=== PATIENT | female | born 1980 | race Caucasian/White ===

== ENCOUNTER 2016-12-09 06:32 | Day surgery (SDC) | payer OTHER ==
[~2016-12-09 06:32] MED LIST: Lactated Ringers 1,000 ML IV SCH; Lidocaine 1% 50 ML MDV ONE
[2016-12-09] MEDS ORDERED: Ondansetron 4 MG/2 ML SDV ONE (07:24)
[2016-12-09] MEDS ORDERED: Lidocaine 2% 5 ML SDV ONE (07:24)
[2016-12-09] MEDS ORDERED: Propofol 200 MG/20 ML SDV ONE (07:24)
[2016-12-09] MEDS ORDERED: fentaNYL 250 MCG/5 ML SDV ONE (07:25)
[2016-12-09] MEDS ORDERED: Midazolam 1 MG/ML 2 ML SDV ONE (07:25)
[2016-12-09] MEDS ORDERED: ceFAZolin 1 GM Vial ONE ×2 (07:29→09:00)
--- NOTE | 2016-12-09 07:37 | PCM.PREANE ---
Preanesthetic Assessment - Procedure Proposed Procedure: Knee arthroscopy - Anesthesia/Transfusion/Family Hx Anesthesia History: Prior Anesthesia Without Reaction Other Type of Anesthesia Reaction Comment: "my blood pressure drops when coming out of anesthesia" Family History of Anesthesia Reaction: No Transfusion History: No Prior Transfusion(s) - Review of Systems General: No Symptoms Pulmonary: No Symptoms Cardiovascular: No Symptoms, Other (hx cardiomyopathy in distant past) Gastrointestinal: No Symptoms Neurological: Headache (migraines in past), Other (pain in bilateral knees) Other: Reports: None, Anxiety - Physical Assessment O2 Sat by Pulse Oximetry: 98 Respiratory Rate: 16 Vital Signs: Last Vital Signs Temp 98.6 F 12/09/16 07:00 Pulse 66 12/09/16 07:00 Resp 16 12/09/16 07:00 BP 116/70 12/09/16 07:00 Pulse Ox 98 12/09/16 07:00 Height: 5 ft 8 in Weight: 192 lb ASA Class: 2 Mental Status: Alert & Oriented x3 Airway Class: Mallampati = 1 Dentition: Reports: Normal Dentition Thyro-Mental Finger Breadths: 3 Mouth Opening Finger Breadths: 3 ROM/Head Extension: Full Lungs: Clear to Auscultation, Normal Respiratory Effort Cardiovascular: Regular Rate, Regular Rhythm, No Murmurs - Allergies Allergies/Adverse Reactions: Allergies Allergy/AdvReac Type Severity Reaction Status Date / Time Dairy Products Allergy Headache Verified 09/02/15 16:18 gluten Allergy Pain Verified 09/02/15 16:18 Sulfa (Sulfonamide Allergy Hives Verified 06/18/14 12:06 Antibiotics) coconut Allergy Hives Uncoded 09/02/15 16:18 sulfa Allergy Hives Uncoded 06/18/14 12:06 - Blood Blood Available: No Product(s) Available: None - Anesthesia Plan Pre-Op Medication Ordered: None - Acknowledgements Anesthesia Type Planned: General Anesthesia (LMA) Pt an Appropriate Candidate for the Planned Anesthesia: Yes Alternatives and Risks of Anesthesia Discussed w Pt/Guardian: Yes Pt/Guardian Understands and Agrees with Anesthesia Plan: Yes Additional Comments: at bedside with interview and exam. 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 Neurological History: Reports: Migraines Other Neuro History: states has not had a migrane since insertion if pressure point piercings Psychiatric History: Reports: Anxiety Endocrine/Metabolic History: Reports: None Hematologic History: Reports: None Oncologic (Cancer) History: Reports: Cervix Dermatologic History: Reports: None - Past Surgical History Head Surgeries/Procedures: Reports: None HEENT Surgical History: Reports: None Cardiovascular Surgical History: Reports: None Respiratory Surgical History: Reports: None GI Surgical History: Reports: None Female Surgical History: Reports: Hysterectomy, LEEP, Salpingo-Oophorectomy Neurological Surgical History: Reports: None Musculoskeletal Surgical History: Reports: Other (See Below) Other Musculoskeletal Surgeries/Procedures:: surgery on right foot for " Cobblers bump" Oncologic Surgical History: Reports: None - SUBSTANCE USE Smoking Status *Q: Never Smoker Second Hand Smoke Exposure: No Days Per Week of Alcohol Use: 0 Recreational Drug Use History: No - HOME MEDS Home Medications: Home Meds SUMAtriptan [Imitrex] 100 mg PO ASDIRECTED PRN 06/18/14 [History] Ibuprofen 800 mg PO ASDIRECTED PRN 11/19/16 [History] - CURRENT (IN HOUSE) MEDS Current Meds: Current Medications Hydrocodone Bitart/Acetaminophen ([place] 325-5 Mg) 1 - 2 tab PO Q4H PRN PRN Reason: Pain Lactated Ringer's (Ringers, Lactated) 1,000 mls @ 100 mls/hr IV ASDIRECTED [facility] Cefazolin Sodium/Dextrose 2 gm (/ Premix) 50 mls @ 100 mls/hr IV ONCALL TYREE Discontinued Medications Cefazolin Sodium (Ancef) Confirm Administered Dose 1 gm .ROUTE .STK-MED ONE Stop: 12/09/16 07:30 Fentanyl (Sublimaze) Confirm Administered Dose 250 mcg .ROUTE .STK-MED ONE Stop: 12/09/16 07:26 Cefazolin Sodium/Dextrose (Ancef) Confirm Administered Dose 50 mls @ as directed .ROUTE .STK-MED ONE Stop: 12/09/16 07:30 Lidocaine (Xylocaine-Mpf 2%) Confirm Administered Dose 5 ml .ROUTE .STK-MED ONE Stop: 12/09/16 07:25 Lidocaine HCl (Xylocaine 1%) Confirm Administered Dose 50 ml .ROUTE .STK-MED ONE Stop: 12/08/16 15:14 Midazolam HCl (Versed 1 Mg/Ml) Confirm Administered Dose 2 mg .ROUTE .STK-MED ONE Stop: 12/09/16 07:26 Ondansetron HCl (Zofran) Confirm Administered Dose 4 mg .ROUTE .STK-MED ONE Stop: 12/09/16 07:25 Propofol (Diprivan 20 Ml) Confirm Administered Dose 200 mg .ROUTE .STK-MED ONE Stop: 12/09/16 07:25
[2016-12-09] MEDS ORDERED: Scopolamine 1.5 MG Transdermal Patch ONE (07:40)
[2016-12-09] MEDS ORDERED: ceFAZolin 2 GM in Premix Bag 1 BAG IV SCH (08:00)
[2016-12-09] MEDS ORDERED: diphenhydrAMINE 50 MG/ML SDV ONE (08:09)
[2016-12-09] MEDS ORDERED: Dexamethasone 4 MG/ML 5 ML MDV ONE (08:09)
[2016-12-09] MEDS ORDERED: Ketorolac 30 MG/ML SDV ONE (08:21)
[2016-12-09] MEDS ORDERED: fentaNYL 100 MCG/2 ML SDV IVPUSH PRN (08:44)
--- NOTE | 2016-12-09 08:46 | PCM.OPNOTE ---
- General Post-Op/Procedure Note Date of Surgery/Procedure: 12/09/16 Operative Procedure(s): L knee arthroscopy with patella chondroplasty Post-Op Diagnosis: L patella chondromalacia Anesthesia Technique: General ET Tube Primary Surgeon: Natalie Dee [employer] Paralegal: Macrina Giron in mLs: 5 Condition: Good Free Text/Narrative:: tt=11 min #[id number]
[2016-12-09] MEDS ORDERED: Phenylephrine/Normal Saline 100 MCG/ML 10 ML Syringe ONE (09:25)
[2016-12-09] MEDS: Acetaminophen/HYDROcodone 325-5 MG Tab PO PRN ×2 (09:37→11:50)
[2016-12-09 11:33] VITALS: BP 107/58
--- NOTE | 2016-12-09 11:45 | OR ---
SURGEON: Natalie Dee MD DATE OF PROCEDURE: 12/09/2016 PREOPERATIVE DIAGNOSIS: Left knee patellar chondromalacia. POSTOPERATIVE DIAGNOSIS: Left knee patellar chondromalacia. PROCEDURE: Left knee arthroscopy with chondroplasty of the patella. INSTANT PRINTER OPERATOR: Macrina Giron PA-C. ANESTHESIA: General. ESTIMATED BLOOD LOSS: 5 mL. TOURNIQUET TIME: 11 minutes. COMPLICATIONS: None. DVT PROPHYLAXIS: None indicated. IMPLANTS USED: None. BRIEF HISTORY: Odette is a 36-year-old female, who has had complaint of progressive bilateral knee pain, left greater than right. She did have an MRI, which did not show significant abnormality. She had significant crepitus noted along the patellofemoral joint. Due to her lack of response to conservative treatment, I did recommend surgical intervention. The risks and goals of the procedure were discussed with the patient and were documented preoperatively. She agreed to proceed. DESCRIPTION OF PROCEDURE: The patient was properly identified and brought to the operating room. She was transferred from the OR cart and placed on the operating table in supine position. General anesthesia was administered. After adequate anesthesia was obtained, a well-padded tourniquet was applied to the left lower extremity. The left lower extremity was then prepped in standard fashion using ChloraPrep solution. It was then sterilely draped. A time-out was performed to ensure correct site and procedure. Preoperative antibiotics were given. The surgical site had been marked preoperatively. An Esmarch was used to exsanguinate the left lower extremity. The tourniquet was inflated to 250 mmHg. A lateral portal arthrotomy was made. Blunt trocar and cannula were introduced into the suprapatellar pouch. Camera, inflow, and outflow were assembled. No significant synovitis was noted. The patellofemoral joint was visualized. I then extended down the lateral and medial gutter. No loose bodies were identified. I then entered the medial compartment. A medial portal arthrotomy was established. A blunt probe was inserted. The meniscus was extensively probed. No tearing was noted. The joint surfaces showed no significant degenerative findings. There was minor softening along the posterior aspect of the medial femoral condyle. I then entered the notch. Both the ACL and PCL were visualized and probed and found to be intact. I then entered the lateral compartment. She did have some grade 2 chondromalacia along the medial portion of the lateral tibial plateau. The lateral femoral condyle showed no degenerative findings. The lateral meniscus was extensively probed and no tearing was noted. I then re-entered the patellofemoral joint. She did have an area of chondromalacia measuring approximately 10 mm x 10 mm over the lateral facet of the patella. This appeared unstable. A shaver was used to perform a chondroplasty. I was able to get the cartilage back to a stable remnant. No subchondral bone was exposed. The knee was taken through a range of motion. The patella appeared to track centrally. The instruments were then removed from the knee. The portal sites were closed with 3-0 nylon. Lidocaine 1% was injected along the portal tracts. Xeroform gauze was placed over the wound and a bulky dressing was applied. The tourniquet was then deflated. She was awakened from her anesthetic and transferred back to the operating room cart. She was brought to recovery room in stable condition. All needle and sponge counts were correct. ABI / CARTER /[id number]
--- NOTE | 2016-12-09 12:32 | PCM.POSTAN ---
POST ANESTHESIA ASSESSMENT - MENTAL STATUS Mental Status: Alert, Oriented - RESPIRATORY Respiratory Status: respiratory rate WNL, Airway Patent, O2 Saturation Stable - CARDIOVASCULAR CV Status: Pulse Rate WNL, Blood Pressure Stable - GASTROINTESTINAL GI Status: No Symptoms, Nauseau (known hx; she seems to only have a mild case, but encouraged to rest and await disappearance of same) - POST OP HYDRATION Hydration Status: Adequate & Stable
== END 2016-12-09 12:10 | disposition home or self-care (01) ==
LOC: MW.SDS 06:32
PROVIDERS: ATTEND Orthopaedic Surgery
DX: M22.42 Chondromalacia patellae, left knee (principal); M19.90 Unspecified osteoarthritis, unspecified site; G43.909 Migraine, unspecified, not intractable, without status migrainosus; Z90.722 Acquired absence of ovaries, bilateral; Z98.890 Other specified postprocedural states; Z88.2 Allergy status to sulfonamides; Z91.011 Allergy to milk products; Z91.018 Allergy to other foods
CPT/HCPCS: 29877; A9270; J0690; J1100; J1200; J1885; J2250; J2405; J3010; J7120; 01400; 88304; J2704

== ENCOUNTER 2018-01-25 23:45 | Emergency (ER) | payer OTHER ==
[2018-01-26] MEDS ORDERED: Sodium Chloride 0.9% 1,000 ML IV ONE (00:04)
[2018-01-26] MEDS ORDERED: Ondansetron 4 MG/2 ML SDV IVPUSH ONE (00:04)
[2018-01-26] MEDS ORDERED: Sodium Chloride 0.9% 2.5 ML Syringe FLUSH PRN (00:04)
[2018-01-26] MEDS ORDERED: Sodium Chloride 0.9% 10 ML Syringe FLUSH PRN (00:04)
[2018-01-26] MEDS ORDERED: Ketorolac 30 MG/ML SDV IVPUSH ONE (00:04)
--- NOTE | 2018-01-26 00:09 | EDM.PDOC ---
ED HPI GENERAL MEDICAL PROBLEM - General Chief Complaint: Abdominal Pain Stated Complaint: PT HAS STOMACH PAINS Time Seen by Provider: 01/25/18 23:54 - History of Present Illness INITIAL COMMENTS - FREE TEXT/NARRATIVE: HISTORY AND PHYSICAL: History of present illness: The patient is a 37-year-old female who presents with right-sided abdominal pain that started about 9 AM and progressed and increased throughout the day. The patient has no GI or history and her only abdominal surgical history is of a vaginal hysterectomy retaining her ovaries and she presents with complaints of a dull deep abdominal pain to the right of the umbilicus started about 9 AM. She said it almost felt like a muscle pull or muscle ache. It did not cause any other symptoms and as the day progressed it seemed to get worse but she did not take any ojrt-hef-pppkkax meds for it. By 2 or 3:00 this afternoon it was more intense and it was radiating to her upper abdomen on the right as well as to her side. She did not have much of an appetite throughout the day and has had nausea but no vomiting. She has not had any diarrhea. The patient states that she usually has 2 bowel movements a day which is her normal and she has not had any today. The patient tells me she is gluten-free as well as lactose intolerance and initially the pain felt similar to that but now it has progressed and it is very different than her usual type of pain if she eats gluten or drinks lactose. The patient says that she monitors her diet throughout the day and she has not had much of an appetite and has had to force herself to eat and push fluids. She has not had any flank pain or urinary complaints no epigastric pain no left-sided abdominal pain and no fevers chills chest pain or shortness of breath. She has not had any recent illnesses. Review of systems: As per history of present illness and below otherwise all systems reviewed and negative. Past medical history: As per history of present illness and as reviewed below otherwise noncontributory. Surgical history: As per history of present illness and as reviewed below otherwise noncontributory. Social history: No reported history of drug or alcohol abuse. Family history: As per history of present illness and as reviewed below otherwise noncontributory. Physical exam: General: Well-developed well-nourished female who looks uncomfortable and is somewhat tearful on my evaluation but vital signs were noted by me. She ambulated into the ED without assistance HEENT: Atraumatic, normocephalic, pupils reactive, negative for conjunctival pallor or scleral icterus, mucous membranes moist, throat clear, neck supple, nontender, trachea midline. Lungs: Clear to auscultation, breath sounds equal bilaterally, chest nontender. Heart: S1S2, regular rate and rhythm no overt murmurs Abdomen: Soft, nondistended, with normoactive bowel sounds. There is discrete tenderness on palpation just to the right of the umbilicus and extending up to the right upper quadrant with some voluntary guarding but no involuntary guarding or rebound.. Negative for masses or hepatosplenomegaly. Negative for costovertebral tenderness. Pelvis: Stable nontender. Genitourinary: Deferred. Rectal: Deferred. Extremities: Atraumatic, negative for cords or calf pain. Neurovascular unremarkable. Neuro: Awake, alert, oriented. Cranial nerves II through XII unremarkable. Cerebellum unremarkable. Motor and sensory unremarkable throughout. Exam nonfocal. Diagnostics: CBC CMP amylase lipase UA CT scan of the abdomen and pelvis Therapeutics: IV fluids Zofran Toradol Bentyl She is aware of all testing results and care plan for home including clear liquid diet Bentyl as needed and follow up with clinic provider for reevaluation and further testing is indicated. Patient is feeling better here in the ED Impression: Right-sided abdominal pain Definitive disposition and diagnosis as appropriate pending reevaluation and review of above. Right Abdomen Pain Score (Numeric/FACES): 7 - Related Data Allergies Allergy/AdvReac Type Severity Reaction Status Date / Time Dairy Products Allergy Headache Verified 09/02/15 16:18 gluten Allergy Pain Verified 09/02/15 16:18 Sulfa (Sulfonamide Allergy Hives Verified 06/18/14 12:06 Antibiotics) coconut Allergy Hives Uncoded 09/02/15 16:18 sulfa Allergy Hives Uncoded 06/18/14 12:06 Home Meds: Home Meds SUMAtriptan [Imitrex] 100 mg PO ASDIRECTED PRN 06/18/14 [History] Ibuprofen 800 mg PO ASDIRECTED PRN 11/19/16 [History] Acetaminophen/HYDROcodone [Chromo 325-5 MG] 1 - 2 tab PO Q4H PRN #80 tablet 12/09 [Rx] Past Medical History HEENT History: Reports: Impaired Vision Other HEENT History: wears glasses for reading and driving Cardiovascular History: Reports: Cardiomyopathy Other Cardiovascular History: Bradycardia Respiratory History: Reports: None Gastrointestinal History: Reports: None Genitourinary History: Reports: None 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: Musculoskeletal History: Reports: Arthritis 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 Neurological History: Reports: Migraines Other Neuro History: states has not had a migrane since insertion if pressure point piercings Psychiatric History: Reports: Anxiety Endocrine/Metabolic History: Reports: None Hematologic History: Reports: None Oncologic (Cancer) History: Reports: Cervix Dermatologic History: Reports: None - Past Surgical History Head Surgeries/Procedures: Reports: None HEENT Surgical History: Reports: None Cardiovascular Surgical History: Reports: None Respiratory Surgical History: Reports: None GI Surgical History: Reports: None Female Surgical History: Reports: Hysterectomy, LEEP, Salpingo-Oophorectomy Neurological Surgical History: Reports: None Musculoskeletal Surgical History: Reports: Other (See Below) Other Musculoskeletal Surgeries/Procedures:: surgery on right foot for " Cobblers bump" Oncologic Surgical History: Reports: None Social & Family History - Family History Family Medical History: Noncontributory - Tobacco Use Smoking Status *Q: Never Smoker ED ROS GENERAL - Review of Systems Review Of Systems: ROS reveals no pertinent complaints other than HPI. ED EXAM, GENERAL - Physical Exam Exam: See Below (See dictation) Course - Vital Signs Last Recorded V/S: Last Vital Signs Temp 36.4 C 01/25/18 23:52 Pulse 63 01/25/18 23:52 Resp 18 01/25/18 23:52 BP 129/75 01/25/18 23:52 Pulse Ox 96 01/25/18 23:52 - Orders/Labs/Meds Orders: Active Orders 24 hr Category Date Time Status Abdomen Pelvis w Cont [CT] Stat Exams 01/26/18 00:04 Taken Dicyclomine [Bentyl] Med 01/26/18 01:33 Once 20 mg PO ONETIME ONE Sodium Chloride 0.9% [Saline Flush] Med 01/26/18 00:04 Active 10 ml FLUSH ASDIRECTED PRN Sodium Chloride 0.9% [Saline Flush] Med 01/26/18 00:04 Active 2.5 ml FLUSH ASDIRECTED PRN Saline Lock Insert [OM.PC] Stat [facility] 01/26/18 00:03 Ordered Medication Orders Sodium Chloride (Saline Flush) 10 ml FLUSH ASDIRECTED PRN PRN Reason: Keep Vein Open Sodium Chloride (Saline Flush) 2.5 ml FLUSH ASDIRECTED PRN PRN Reason: Keep Vein Open Labs: Laboratory Tests 01/26/18 01/26/18 01/26/18 Range/Units 00:10 00:10 00:15 WBC 6.24 (4.0-11.0) K/uL RBC 4.65 (4.30-5.90) M/uL Hgb 14.6 (12.0-16.0) g/dL Hct 42.1 (36.0-46.0) % MCV 90.5 (80.0-98.0) fL MCH 31.4 (27.0-32.0) pg MCHC 34.7 (31.0-37.0) g/dL RDW Std Deviation 46.0 (28.0-62.0) fl RDW Coeff of Jazmin 14 (11.0-15.0) % Plt Count 223 (150-400) K/uL MPV 9.80 (7.40-12.00) fL Neut % (Auto) 45.9 L (48.0-80.0) % Lymph % (Auto) 44.4 H (16.0-40.0) % Glenn % (Auto) 7.2 (0.0-15.0) % Eos % (Auto) 2.2 (0.0-7.0) % Baso % (Auto) 0.3 (0.0-1.5) % Neut # (Auto) 2.9 (1.4-5.7) K/uL Lymph # (Auto) 2.8 H (0.6-2.4) K/uL Glenn # (Auto) 0.5 (0.0-0.8) K/uL Eos # (Auto) 0.1 (0.0-0.7) K/uL Baso # (Auto) 0.0 (0.0-0.1) K/uL Nucleated RBC % 0.0 /100WBC Nucleated RBCs # 0 K/uL Sodium 137 (136-145) mmol/L Potassium 3.8 (3.5-5.1) mmol/L Chloride 104 (98-107) mmol/L Carbon Dioxide 26.5 (21.0-32.0) mmol/L BUN 14 (7.0-18.0) mg/dL Creatinine 1.2 H (0.6-1.0) mg/dL Est Cr Clr Drug Dosing 64.75 mL/min Estimated GFR (MDRD) 50.6 ml/min Glucose 99 (74-106) mg/dL Calcium 8.9 (8.5-10.1) mg/dL Total Bilirubin 1.0 (0.2-1.0) mg/dL AST 18 (15-37) IU/L ALT 29 (14-63) IU/L Alkaline Phosphatase 63 (46-116) U/L Total Protein 7.2 (6.4-8.2) g/dL Albumin 4.0 (3.4-5.0) g/dL Globulin 3.2 (2.0-3.5) g/dL Albumin/Globulin Ratio 1.3 (1.3-2.8) Amylase 58 (25-115) U/L Lipase 166 (73-393) U/L Urine Color YELLOW Urine Appearance CLEAR Urine pH 6.0 (5.0-8.0) Ur Specific [place] 1.020 (1.001-1.035) Urine Protein NEGATIVE (NEGATIVE) mg/dL Urine Glucose (UA) NEGATIVE (NEGATIVE) mg/dL Urine Ketones NEGATIVE (NEGATIVE) mg/dL Urine Occult Blood NEGATIVE (NEGATIVE) Urine Nitrite NEGATIVE (NEGATIVE) Urine Bilirubin NEGATIVE (NEGATIVE) Urine Urobilinogen 0.2 (<2.0) EU/dL Ur Leukocyte Esterase NEGATIVE (NEGATIVE) Urine RBC 0-1 (0-2/HPF) Urine WBC 0-1 (0-5/HPF) Ur Epithelial Cells FEW (NONE-FEW) Urine Bacteria RARE (NEGATIVE) Urine Mucus LIGHT (NONE-MOD) Meds: Medications Generic Name Dose Route Start Last Admin Trade Name Freq PRN Reason Stop Dose Admin Sodium Chloride 10 ml 01/26/18 00:04 Saline Flush FLUSH ASDIRECTED PRN Keep Vein Open Sodium Chloride 2.5 ml 01/26/18 00:04 Saline Flush FLUSH ASDIRECTED PRN Keep Vein Open Discontinued Medications Generic Name Dose Route Start Last Admin Trade Name Freq PRN Reason Stop Dose Admin Sodium Chloride 1,000 mls @ 999 mls/hr 09/12/18 00:04 01/26/18 00:15 Normal Saline IV 01/26/18 01:04 999 mls/hr STAT ONE Administration Iopamidol 80 ml 01/26/18 01:21 01/26/18 01:21 Isovue Multipack-370 (76%) IVPUSH 01/26/18 01:22 80 ml ONETIME ONE Administration Ketorolac Tromethamine 30 mg 01/26/18 00:04 01/26/18 00:24 Toradol IVPUSH 01/26/18 00:05 30 mg ONETIME ONE Administration Ondansetron HCl 4 mg 01/26/18 00:04 01/26/18 00:24 Zofran IVPUSH 01/26/18 00:05 4 mg ONETIME ONE Administration Departure - Departure Time of Disposition: 01:34 Disposition: Home, Self-Care 01 Condition: Good Clinical Impression: Abdominal pain Qualifiers: Abdominal location: unspecified location Qualified Code(s): R10.9 - Unspecified abdominal pain - Discharge Information Referrals: PCP,None [Primary Care Provider] - Forms: ED Department Discharge Additional Instructions: The following information is given to patients seen in the emergency department who are being discharged to home. This information is to outline your options for follow-up care. We provide all patients seen in our emergency department with a follow-up referral. The need for follow-up, as well as the timing and circumstances, are variable depending upon the specifics of your emergency department visit. If you don't have a primary care physician on staff, we will provide you with a referral. We always advise you to contact your personal physician following an emergency department visit to inform them of the circumstance of the visit and for follow-up with them and/or the need for any referrals to a consulting specialist. The emergency department will also refer you to a specialist when appropriate. This referral assures that you have the opportunity for followup care with a specialist. All of these measure are taken in an effort to provide you with optimal care, which includes your followup. Under all circumstances we always encourage you to contact your private physician who remains a resource for coordinating your care. When calling for followup care, please make the office aware that this follow-up is from your recent emergency room visit. If for any reason you are refused follow-up, please contact the [facility] emergency department at and ask to speak to the emergency department charge nurse. [facility] Primary care- Internal Medicine and Family [address] [address] Push hydration and clear liquid diet for the next 12 hours. Use Bentyl as prescribed and as needed. Please contact and follow-up with your provider for further care and reevaluation of the symptoms and return to ER as needed and as discussed - My Orders Last 24 Hours: My Active Orders 01/26/18 00:03 Saline Lock Insert [OM.PC] Stat 01/26/18 00:04 Abdomen Pelvis w Cont [CT] Stat Sodium Chloride 0.9% [Saline Flush] 10 ml FLUSH ASDIRECTED PRN Sodium Chloride 0.9% [Saline Flush] 2.5 ml FLUSH ASDIRECTED PRN 01/26/18 01:33 Dicyclomine [Bentyl] 20 mg PO ONETIME ONE - Assessment/Plan Last 24 Hours: My Active Orders 01/26/18 00:03 Saline Lock Insert [OM.PC] Stat 01/26/18 00:04 Abdomen Pelvis w Cont [CT] Stat Sodium Chloride 0.9% [Saline Flush] 10 ml FLUSH ASDIRECTED PRN Sodium Chloride 0.9% [Saline Flush] 2.5 ml FLUSH ASDIRECTED PRN 01/26/18 01:33 Dicyclomine [Bentyl] 20 mg PO ONETIME ONE
[2018-01-26] MEDS ORDERED: Iopamidol 755 MG/ML 200 ML Multipack Bottle IVPUSH ONE (01:21)
[2018-01-26] MEDS ORDERED: Dicyclomine 10 MG Cap PO ONE (01:33)
[2018-01-26 02:53] VITALS: BP 101/52
--- NOTE | 2018-01-26 11:21 | CT ---
EXAM DATE: 01/25/18 PATIENT'S AGE: 37 Patient: ANGELIC MICHELLE Facility: [place], [place] Site . Site : 1980 Study: CT Abdomen/Pelvis w/ cont. [id number]/12/2018 1:17:21 AM Ordering Physician: Cm Zavala Final Report: INDICATION: Right mid abdominal pain and nausea beginning this morning. COMPARISON: None available. TECHNIQUE: CT examination of the abdomen and pelvis was performed with the uneventful intravenous administration of 80 cc of Isovue 370. While 3 mm thick axial sections were obtained from the lung bases through the pubic symphysis. Oral contrast was not administered. Please note that all CT scans at this facility use dose modulation, iterative reconstruction, and/or weight-based dosing when appropriate to reduce radiation dose to as low as reasonably achievable. FINDINGS: In the abdomen, the liver, spleen, pancreas, and adrenals are normal in appearance. The kidneys are normal in appearance. The gallbladder is normal in appearance. The abdominal aorta is normal in caliber with no sign of dilatation. There is no sign of retroperitoneal mass or adenopathy. The stomach, loops of small bowel, and colon in the abdomen are normal in appearance. In the pelvis, the appendix is normal in appearance with no sign of inflammatory process. The loops of small bowel and colon in the pelvis are normal in appearance. The uterus is absent and the adnexal regions are normal in appearance. The urinary bladder is normal in appearance. There is no sign of pelvic or inguinal mass or adenopathy. The lung bases are clear. The osseous structures are normal in appearance for the patient`s age. IMPRESSION: NOTHING SEEN TO EXPLAIN THE PATIENT`S RIGHT-SIDED PAIN. NORMAL APPEARANCE OF THE GALLBLADDER, RIGHT KIDNEY, AND APPENDIX. NORMAL CT OF THE ABDOMEN WITH CONTRAST. NORMAL CT OF THE PELVIS WITH CONTRAST. Please note that all CT scans at this facility use dose modulation, iterative reconstruction, and/or weight-based dosing when appropriate to reduce radiation dose to as low as reasonably achievable. Dictated by Felipe Huntley MD @ Jan 26 2018 1:19AM (Electronic Signature) Report Signed by Proxy. [facility] HEALTHDominique
== END 2018-01-26 02:02 | disposition home or self-care (01) ==
LOC: MW.ED 23:45
DX: R10.9 Unspecified abdominal pain (principal); Z88.2 Allergy status to sulfonamides; Z91.018 Allergy to other foods; Z91.011 Allergy to milk products
CPT/HCPCS: 36415; 74177; 80053; 81001; 82150; 83690; 85025; 96361; 96374; 96375; 99284; A9270; J1885; J2405; J7040; Q9967

== ENCOUNTER 2019-11-14 20:25 | Emergency (ER) | payer OTHER ==
[2019-11-14] MEDS ORDERED: Ketorolac 30 MG/ML SDV IVPUSH ONE (20:36)
[2019-11-14] MEDS ORDERED: Ketorolac 15 MG/ML SDV ONE (20:37)
[2019-11-14] MEDS ORDERED: fentaNYL 50 MCG/ML SDV IVPUSH ONE (20:37)
[2019-11-14] MEDS ORDERED: Sodium Chloride 0.9% 10 ML Syringe FLUSH PRN (20:37)
[2019-11-14] MEDS ORDERED: Sodium Chloride 0.9% 2.5 ML Syringe FLUSH PRN (20:37)
--- NOTE | 2019-11-14 20:43 | EDM.PDOC ---
ED HPI GENERAL MEDICAL PROBLEM - General Chief Complaint: Lower Extremity Injury/Pain Stated Complaint: LEFT LEG INJURY Time Seen by Provider: 11/14/19 20:32 - History of Present Illness INITIAL COMMENTS - FREE TEXT/NARRATIVE: History of present illness: [] This patient was playing softball and suddenly she felt a pop in her left calf. This was on takeoff and she began to run. She has excruciating pain since is worse when she touches it worse when she moves it worse will be put ice on it. Severe and sharp. Review of systems: As per history of present illness and below otherwise all systems reviewed and negative. Past medical history: As per history of present illness and as reviewed below otherwise noncontributory. Surgical history: As per history of present illness and as reviewed below otherwise noncontribut ory. Social history: No reported history of drug or alcohol abuse. Family history: As per history of present illness and as reviewed below otherwise noncontributory. Physical exam: Constitutional - well developed, well-nourished and in moderate acute distress can Serjio to pain HEENT - normocephalic, no evidence of trauma - external nose and mouth normal - no mass in neck and no JVD - mucosae moist EYES - full EOM, PERRL, no icterus - no evidence of inflammation, injection, or drainage Respiratory - no respiratory distress, equal bilateral expansion, lungs clear to auscultation and no abnormal lung sounds Cardiovascular - Regular Rhythm with S1 and S2 appreciated and no murmur, gallop or rub. Peripheral pulses symmetrically normal in all four extremities GI - abdomen soft without distension or organomegaly - normal bowel sounds - no guard or rebound Musculoskeletal she has tenderness in the left calf muscles. No gross deformity of long bones or joints - no tenderness, swelling or edema. She prefers to hold the patient the foot in plantar flexion Neurologic - Alert and oriented times four - CN II-XII grossly intact - motor sensory and coordination symmetrically normal Psychiatric - appropriate mood and affect with normal thought content Hematologic - No petechiae or purpura - mucosa appropriate color and sclera not pale - normal nail bed color and refill Integument - no rash or evidence of trauma - normal turgor Diagnostics: [] Therapeutics: [] Impression: [] Plan: [] Definitive disposition and diagnosis as appropriate pending reevaluation and review of above. Onset: Today, Sudden left lower leg Pain Score (Numeric/FACES): 10 - Related Data Allergies Allergy/AdvReac Type Severity Reaction Status Date / Time Dairy Products Allergy Headache Verified 11/14/19 20:34 gluten Allergy Pain Verified 11/14/19 20:34 Sulfa (Sulfonamide Allergy Hives Verified 11/14/19 20:34 Antibiotics) coconut Allergy Hives Uncoded 11/14/19 20:34 sulfa Allergy Hives Uncoded 11/14/19 20:34 Home Meds: Home Meds SUMAtriptan [Imitrex] 100 mg PO ASDIRECTED PRN 06/18/14 [History] Ibuprofen 800 mg PO ASDIRECTED PRN 11/19/16 [History] Acetaminophen/HYDROcodone [[place] 325-5 MG] 1 - 2 tab PO Q4H PRN #80 tablet 12/09/16 [Rx] Past Medical History HEENT History: Reports: Impaired Vision Other HEENT History: wears glasses for reading and driving Cardiovascular History: Reports: Cardiomyopathy Other Cardiovascular History: Bradycardia Respiratory History: Reports: None Gastrointestinal History: Reports: None Genitourinary History: Reports: None 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: Musculoskeletal History: Reports: Arthritis 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 Neurological History: Reports: Migraines Other Neuro History: states has not had a migrane since insertion if pressure point piercings Psychiatric History: Reports: Anxiety Endocrine/Metabolic History: Reports: None Hematologic History: Reports: None Oncologic (Cancer) History: Reports: Cervix Dermatologic History: Reports: None - Past Surgical History Head Surgeries/Procedures: Reports: None HEENT Surgical History: Reports: None Cardiovascular Surgical History: Reports: None Respiratory Surgical History: Reports: None GI Surgical History: Reports: None Female Surgical History: Reports: Hysterectomy, LEEP, Salpingo-Oophorectomy Neurological Surgical History: Reports: None Musculoskeletal Surgical History: Reports: Other (See Below) Other Musculoskeletal Surgeries/Procedures:: surgery on right foot for "Cobblers bump" Oncologic Surgical History: Reports: None Social & Family History - Family History Family Medical History: Noncontributory Review of Systems - Review of Systems Review Of Systems: Comprehensive ROS is negative, except as noted in HPI. ED EXAM, GENERAL - Physical Exam Exam: See Below Free Text/Narrative:: My physical exam is under HPI Course - Vital Signs Last Recorded V/S: Last Vital Signs Temp 97.2 F 11/14/19 21:30 Pulse 66 11/14/19 21:30 Resp 18 11/14/19 21:30 BP 114/59 L 11/14/19 21:30 Pulse Ox 97 11/14/19 21:30 - Orders/Labs/Meds Orders: Active Orders 24 hr Category Date Time Status DME for Discharge [COMM] Stat Oth 11/14/19 21:22 Ordered Saline Lock Insert [OM.PC] Stat Oth 11/14/19 20:37 Ordered Meds: Medications Discontinued Medications Generic Name Dose Route Start Last Admin Trade Name Freq PRN Reason Stop Dose Admin Fentanyl 50 mcg 11/14/19 20:37 11/14/19 20:46 Fentanyl IVPUSH 11/14/19 20:38 50 mcg ONETIME ONE Administration Ketorolac Tromethamine 15 mg 11/14/19 20:36 11/14/19 20:46 Toradol IVPUSH 11/14/19 20:37 Not Given ONETIME ONE Ketorolac Tromethamine Confirm 11/14/19 20:37 11/14/19 20:45 Toradol Administered 11/14/19 20:38 15 mg Dose Administration 15 mg .ROUTE .STK-MED ONE Sodium Chloride 10 ml 11/14/19 20:37 Saline Flush FLUSH ASDIRECTED PRN Keep Vein Open Sodium Chloride 2.5 ml 11/14/19 20:37 Saline Flush FLUSH ASDIRECTED PRN Keep Vein Open Departure - Departure Time of Disposition: 21:23 Disposition: Home, Self-Care 01 Condition: Good Clinical Impression: Gastrocnemius strain, left - Discharge Information Instructions: Muscle Strain, [id number] Referrals: PCP,None [Primary Care Provider] - Ad Goode MD [Physician] - Forms: ED Department Discharge Additional Instructions: [facility] - Orthopedic Clinic [address], [address] [place] [address] The following information is given to patients seen in the emergency department who are being discharged to home. This information is to outline your options for follow-up care. We provide all patients seen in our emergency department with a follow-up referral. The need for follow-up, as well as the timing and circumstances, are variable depending upon the specifics of your emergency department visit. If you don't have a primary care physician on staff, we will provide you with a referral. We always advise you to contact your personal physician following an emergency department visit to inform them of the circumstance of the visit and for follow-up with them and/or the need for any referrals to a consulting specialist. The emergency department will also refer you to a specialist when appropriate. This referral assures that you have the opportunity for follow-up care with a specialist. All of these measure are taken in an effort to provide you with optimal care, which includes your follow-up. Under all circumstances we always encourage you to contact your private physician who remains a resource for coordinating your care. When calling for follow-up care, please make the office aware that this follow-up is from your recent emergency room visit. If for any reason you are refused follow-up, please contact the [facility] Emergency Department at and asked to speak to the emergency department charge nurse. Sepsis Event Note (ED) - Focused Exam Vital Signs: Vital Signs Temp Pulse Resp BP Pulse Ox 11/14/19 21:30 97.2 F 66 18 114/59 L 97 11/14/19 20:30 97 F 94 18 143/68 H 98 - My Orders Last 24 Hours: My Active Orders 11/14/19 20:37 Saline Lock Insert [OM.PC] Stat 11/14/19 21:22 DME for Discharge [COMM] Stat - Assessment/Plan Last 24 Hours: My Active Orders 11/14/19 20:37 Saline Lock Insert [OM.PC] Stat 11/14/19 21:22 DME for Discharge [COMM] Stat
--- NOTE | 2019-11-14 21:03 | CR ---
Left tibia and fibula: 2 views of the left tibia and fibula were obtained. Comparison: No previous left tibia or fibula study. No fracture or other bony abnormality is appreciated. Impression: 1. No bony abnormality is seen on left tibia and fibula exam. Diagnostic code #1 This report was dictated in MDT
[2019-11-14 23:37] VITALS: BP 114/59; PULSE 66
== END 2019-11-14 21:35 | disposition home or self-care (01) ==
LOC: MW.ED 20:25
DX: S86.112A Strain of other muscle(s) and tendon(s) of posterior muscle group at lower leg level, left leg, initial encounter (principal); Z91.011 Allergy to milk products; Z91.048 Other nonmedicinal substance allergy status; Z88.2 Allergy status to sulfonamides; Z91.018 Allergy to other foods; X58.XXXA Exposure to other specified factors, initial encounter; Y93.64 Activity, baseball
CPT/HCPCS: 73590; 96374; 96375; 99283; J1885; J3010; 99282

== ENCOUNTER 2020-08-02 19:53 | Emergency (ER) | payer OTHER ==
--- NOTE | 2020-08-02 20:17 | EDM.PDOC ---
ED HPI GENERAL MEDICAL PROBLEM - General Chief Complaint: Lower Extremity Injury/Pain Stated Complaint: KNEE WENT OUT DURING WORKING OUT Time Seen by Provider: 08/02/20 20:22 Source of Information: Reports: Patient - History of Present Illness INITIAL COMMENTS - FREE TEXT/NARRATIVE: History of present illness: [] Patient was exercising in the gym. She jumped up on a box and landed safely. But while she was supporting weight on the box she fairly quickly heard a pop and had a sudden pain in the medial right knee. She also has tingling in her right lower extremity below that but no pain anywhere else. She did not fall or hit the ground or injure any other joints. The patient does not smoke. She says she is not . She is never been addicted any medicines or alcohol. I am going to try NSAID for pain first but feel free to give her narcotic if she needs it for this acute injury. Review of systems: As per history of present illness and below otherwise all systems reviewed and negative. Past medical history: As per history of present illness and as reviewed below otherwise noncontributory. Surgical history: As per history of present illness and as reviewed below otherwise noncontributory. Social history: No reported history of drug or alcohol abuse. Family history: As per history of present illness and as reviewed below otherwise noncontributory. Physical exam: Constitutional - well developed, well-nourished and in no acute distress HEENT - normocephalic, no evidence of trauma - external nose and mouth normal - no mass in neck and no JVD - mucosae moist EYES - full EOM, PERRL, no icterus - no evidence of inflammation, injection, or drainage Respiratory - no respiratory distress, equal bilateral expansion Musculoskeletal exquisite tenderness in the medial and anterior right knee. Otherwise no gross deformity of long bones or joints - no tenderness, swelling or edema Neurologic - Alert and oriented times four - CN II-XII grossly intact - motor sensory and coordination symmetrically normal Psychiatric - appropriate mood and affect with normal thought content Hematologic - No petechiae or purpura - mucosa appropriate color and sclera not pale - normal nail bed color and refill Integument - no rash or evidence of trauma - normal turgor Diagnostics: [] Therapeutics: [] Impression: [] Plan: [] Definitive disposition and diagnosis as appropriate pending reevaluation and review of above. R knee Pain Score (Numeric/FACES): 10 - Related Data Allergies Allergy/AdvReac Type Severity Reaction Status Date / Time Dairy Products Allergy Headache Verified 08/02/20 20:08 gluten Allergy Pain Verified 08/02/20 20:08 Sulfa (Sulfonamide Allergy Hives Verified 08/02/20 20:08 Antibiotics) coconut Allergy Hives Uncoded 11/14/19 20:34 sulfa Allergy Hives Uncoded 11/14/19 20:34 Home Meds: Home Meds SUMAtriptan [Imitrex] 100 mg PO ASDIRECTED PRN 06/18/14 [History] Acetaminophen/HYDROcodone [[place] 325-10 MG] 1 tab PO Q4H PRN #14 tab 08/02/20 [Rx] Past Medical History HEENT History: Reports: Impaired Vision Other HEENT History: wears glasses for reading and driving Cardiovascular History: Reports: Cardiomyopathy Other Cardiovascular History: Bradycardia Respiratory History: Reports: None Gastrointestinal History: Reports: None Genitourinary History: Reports: None 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: Musculoskeletal History: Reports: Arthritis 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, sx to L knee Neurological History: Reports: Migraines Other Neuro History: states has not had a migrane since insertion if pressure point piercings Psychiatric History: Reports: Anxiety Endocrine/Metabolic History: Reports: None 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 Hematologic History: Reports: None Immunologic History: Reports: None Oncologic (Cancer) History: Reports: Cervix Dermatologic History: Reports: None - Infectious Disease History Infectious Disease History: Reports: Chicken Pox - Past Surgical History Head Surgeries/Procedures: Reports: None HEENT Surgical History: Reports: None Cardiovascular Surgical History: Reports: None Respiratory Surgical History: Reports: None GI Surgical History: Reports: None Female Surgical History: Reports: Hysterectomy, LEEP, Salpingo-Oophorectomy Neurological Surgical History: Reports: None Musculoskeletal Surgical History: Reports: Other (See Below) Other Musculoskeletal Surgeries/Procedures:: surgery on right foot for "Cobblers bump" Oncologic Surgical History: Reports: None Social & Family History - Family History Family Medical History: No Pertinent Family History - Caffeine Use Caffeine Use: Reports: Energy Drinks - Recreational Drug Use Recreational Drug Use: No Review of Systems - Review of Systems Review Of Systems: Comprehensive ROS is negative, except as noted in HPI. ED EXAM, GENERAL - Physical Exam Exam: See Below Free Text/Narrative:: My physical exam is in the HPI Course - Vital Signs Text/Narrative:: Patient will have stability check after the swelling is down the pains better. I put a knee immobilizer on for diagnosis right interna derangement of the knee I CD10 M 23.91 this is to stabilize the knee so swelling can go down and she can have stability recheck to decide if she needs an MRI or surgery Last Recorded V/S: Last Vital Signs Temp 36.7 C 08/02/20 20:09 Pulse 96 08/02/20 20:09 Resp 18 08/02/20 20:09 BP 135/56 L 08/02/20 20:09 Pulse Ox 96 08/02/20 20:09 - Orders/Labs/Meds Orders: Active Orders 24 hr Category Date Time Status DME for Discharge [COMM] Stat Oth 08/02/20 21:48 Ordered Meds: Medications Discontinued Medications Generic Name Dose Route Start Last Admin Trade Name Freq PRN Reason Stop Dose Admin Ketorolac Tromethamine 30 mg 08/02/20 20:19 08/02/20 20:29 Ketorolac 30 Mg/Ml Sdv IM 08/02/20 20:20 30 mg ONETIME ONE Administration Departure - Departure Time of Disposition: 21:50 Disposition: Home, Self-Care 01 Condition: Good Clinical Impression: Internal derangement of knee joint - Discharge Information Instructions: Knee Sprain, Adult, [id number] Referrals: Magi Jay, CH[employer] HOUSE ATTENDANT [Primary Care Provider] - Forms: ED Department Discharge Additional Instructions: The immobilizer. Ice and elevate. Make appointment with orthopedics. [facility] - Orthopedic Clinic Professional [address], [address] [place] [address] The following information is given to patients seen in the emergency department who are being discharged to home. This information is to outline your options for follow-up care. We provide all patients seen in our emergency department with a follow-up referral. The need for follow-up, as well as the timing and circumstances, are variable depending upon the specifics of your emergency department visit. If you don't have a primary care physician on staff, we will provide you with a referral. We always advise you to contact your personal physician following an emergency department visit to inform them of the circumstance of the visit and for follow-up with them and/or the need for any referrals to a consulting specialist. The emergency department will also refer you to a specialist when appropriate. This referral assures that you have the opportunity for follow-up care with a specialist. All of these measure are taken in an effort to provide you with optimal care, which includes your follow-up. Under all circumstances we always encourage you to contact your private physician who remains a resource for coordinating your care. When calling for follow-up care, please make the office aware that this follow-up is from your recent emergency room visit. If for any reason you are refused follow-up, please contact the [facility] Emergency Department at and asked to speak to the emergency department charge nurse. Sepsis Event Note (ED) - Evaluation Sepsis Screening Result: No Definite Risk - Focused Exam Vital Signs: Vital Signs Temp Pulse Resp BP Pulse Ox 08/02/20 20:09 36.7 C 96 18 135/56 L 96 - My Orders Last 24 Hours: My Active Orders 08/02/20 21:48 DME for Discharge [COMM] Stat - Assessment/Plan Last 24 Hours: My Active Orders 08/02/20 21:48 DME for Discharge [COMM] Stat
[2020-08-02] MEDS ORDERED: Ketorolac 30 MG/ML SDV IM ONE (20:19)
--- NOTE | 2020-08-02 21:17 | CR ---
INDICATION: Knee injury during workout TECHNIQUE: Knee radiograph 3 views right COMPARISON: 11/03/2016 FINDINGS: Bone: No acute fractures or aggressive bone lesions are identified. Joint: The joint spaces of the medial, lateral, and patellofemoral compartments are unremarkable. No significant knee effusion is seen. Soft tissue: Overlying fabric artifacts severely limits the evaluation of the soft tissues and osseous structures. No radiopaque foreign bodies are seen. IMPRESSIONS: 1. No acute osseous injuries or abnormalities are noted. 2. Overlying fabric artifacts severely limits the evaluation of the soft tissues and osseous structures. Dictated by Robert Lunsford MD @ 08/02/2020 9:15:01 PM Dictated by: Robert Lunsford MD @ 08/02/2020 21:15:07 (Electronically Signed)
[2020-08-03 01:33] VITALS: BP 111/62; PULSE 55
== END 2020-08-02 22:25 | disposition home or self-care (01) ==
LOC: MW.ED 19:53
DX: M23.91 Unspecified internal derangement of right knee (principal); Z91.011 Allergy to milk products; Z91.018 Allergy to other foods; Z88.2 Allergy status to sulfonamides
CPT/HCPCS: 73562; 96372; 99284; J1885; 99283

== ENCOUNTER 2022-04-28 09:52 | Day surgery (SDC) | payer OTHER ==
[~2022-04-28 09:52] MED LIST changes: +Albuterol 0.083% 2.5 MG/3 ML Neb Soln NEB PRN; +HYDROmorphone 1 MG/ML Syringe IVPUSH PRN; -Lactated Ringers 1,000 ML IV SCH; -Lidocaine 1% 50 ML MDV ONE; +Metoclopramide 10 MG/2 ML SDV IVPUSH PRN; +Morphine 2 MG/ML SYRINGE IVPUSH PRN; +Naloxone 0.4 MG/ML SDV IVPUSH PRN; +Ondansetron 4 MG/2 ML SDV IVPUSH PRN; +Sodium Chloride 0.9% 10 ML Syringe FLUSH PRN; +Sodium Chloride 0.9% 2.5 ML Syringe FLUSH PRN; +Sodium Chloride 0.9% 20 ML SDV IV PRN; +fentaNYL 50 MCG/ML SDV IVPUSH PRN
[2022-04-28] MEDS ORDERED: fentaNYL 250 MCG/5 ML SDV ONE (09:53)
[2022-04-28] MEDS ORDERED: Propofol 200 MG/20 ML SDV ONE ×3 (09:53→11:32)
[2022-04-28] MEDS ORDERED: Sugammadex Sodium 200 MG/2 ML VIAL ONE ×2 (09:58→11:32)
[2022-04-28] MEDS ORDERED: Dexamethasone 4 MG/ML 5 ML MDV ONE (09:58)
[2022-04-28] MEDS ORDERED: Ondansetron 4 MG/2 ML SDV ONE ×2 (09:58→11:32)
[2022-04-28] MEDS ORDERED: Rocuronium Bromide 50 MG/5 ML Syringe ONE ×3 (09:58→11:32)
[2022-04-28] MEDS ORDERED: Ketorolac 30 MG/ML SDV ONE ×2 (09:58→11:32)
[2022-04-28] MEDS ORDERED: Scopolamine 1.5 MG Transdermal Patch TOP ONE (10:00)
[2022-04-28] MEDS ORDERED: Lactated Ringers 1,000 ML IV SCH (10:45)
[2022-04-28] MEDS ORDERED: Bupivacaine 0.25% 30 ML SDV ONE (11:28)
[2022-04-28] MEDS ORDERED: Lidocaine 2% 5 ML SDV ONE ×2 (11:32→11:51)
[2022-04-28] MEDS ORDERED: fentaNYL 100 MCG/2 ML SDV ONE (11:32)
[2022-04-28] MEDS ORDERED: Bupivacaine 0.5% 10 ML SDV ONE (11:48)
[2022-04-28] MEDS ORDERED: Ropivacaine 0.5% 5 MG/ML 30 ML SDV ONE (11:48)
[2022-04-28 14:28] VITALS: BP 103/58; PULSE 57
== END 2022-04-28 14:50 | disposition home or self-care (01) ==
LOC: MW.SDS 09:52
PROVIDERS: ATTEND Obstetrics & Gynecology
DX: N83.8 Other noninflammatory disorders of ovary, fallopian tube and broad ligament (principal); N70.11 Chronic salpingitis; M19.90 Unspecified osteoarthritis, unspecified site; Z98.890 Other specified postprocedural states; Z79.899 Other long term (current) drug therapy; Z90.710 Acquired absence of both cervix and uterus; Z88.2 Allergy status to sulfonamides; Z91.018 Allergy to other foods
CPT/HCPCS: 36415; 58661; 85027; A9270; J1100; J1170; J1885; J2405; J2704; J2795; J3010; J3490; J7120; 00840; 64488

== ENCOUNTER 2022-08-03 19:46 | Emergency (ER) | payer OTHER | END 2022-08-03 20:22 | disposition left against medical advice (07) | LOC: MW.ED 19:46 | DX: Z53.21 Procedure and treatment not carried out due to patient leaving prior to being seen by health care provider (principal) ==

== ENCOUNTER 2023-07-07 11:52 | Emergency (ER) | payer OTHER, BC ==
[2023-07-07 12:13] LABS: APPEARANCE,URINE CLEAR; BILIRUBIN,URINE NEGATIVE (NEGATIVE); COLOR,URINE YELLOW; GLUCOSE,URINE NEGATIVE (NEGATIVE); KETONES,URINE NEGATIVE (NEGATIVE); LEUKOCYTE ESTERASE,URINE NEGATIVE (NEGATIVE); NITRITE,URINE NEGATIVE (NEGATIVE); OCCULT BLOOD,URINE NEGATIVE (NEGATIVE); PROTEIN,URINE NEGATIVE (NEGATIVE); UROBILINOGEN,URINE 0.2 EU/dL (<2.0)
[2023-07-07 12:23] LABS: BASOPHILS ABSOLUTE AUTO 0.02 K/uL (0.00-0.20); BASOPHILS PERCENT AUTO 0.3 % (0.0-1.0); EOSINOPHILS ABSOLUTE AUTO 0.04 K/uL (0.00-0.45); EOSINOPHILS PERCENT AUTO 0.6 % (0.0-6.0); HEMATOCRIT 43.2 % (37.0-47.0); HEMOGLOBIN 14.7 g/dL (12.0-16.0); IMMATURE GRAN ABSOLUTE AUTO 0.01 K/uL (0.00-0.05); IMMATURE GRAN PERCENT AUTO 0.2 % (0.0-0.4); LYMPHOCYTES ABSOLUTE AUTO 1.41 K/uL (1.00-4.80); LYMPHOCYTES PERCENT AUTO 22.5 % (24.0-44.0); MEAN CORPUSCULAR HEMOGLOBIN 30.9 pg (28.0-32.0); MEAN CORPUSCULAR VOLUME 90.8 fL (83.0-99.0); MEAN PLATELET VOLUME 9.4 fL (9.4-12.3); MONOCYTES ABSOLUTE AUTO 0.31 K/uL (0.00-0.80); NEUTROPHILS ABSOLUTE AUTO 4.47 K/uL (1.80-7.70); NEUTROPHILS PERCENT AUTO 71.4 % (41.0-71.0); PLATELET COUNT,PLT 220 K/uL (150-400); RED BLOOD CELL COUNT 4.76 M/uL (4.10-5.30); WHITE BLOOD CELL COUNT,WBC 6.26 K/uL (3.9-11.3)
[2023-07-07] MEDS: Morphine 4 MG/ML Syringe IVPUSH ONE (12:41)
[2023-07-07] MEDS: Ondansetron 4 MG/2 ML SDV IVPUSH ONE (12:41)
[2023-07-07] MEDS: Sodium Chloride 0.9% 10 ML Syringe FLUSH PRN (12:42)
[2023-07-07] MEDS: Sodium Chloride 0.9% 2.5 ML Syringe FLUSH PRN (12:42)
[2023-07-07 13:12] LABS: A/G RATIO 1.1 (0.9-1.6); ALBUMIN 3.6 g/dL (3.4-5.0); BILIRUBIN TOTAL 0.8 mg/dL (0.2-1.0); CALCIUM 8.8 mg/dL (8.5-10.1); CARBON DIOXIDE,CO2 21.9 mmol/L (21.0-32.0); CREATININE 1.2 mg/dL (0.6-1.0); EST CRCL DRUG DOSING (CG) 61.61 mL/min; POTASSIUM,K 4.1 mmol/L (3.5-5.1); PROTEIN TOTAL,TP 6.8 g/dL (6.4-8.2)
[2023-07-07] MEDS: Tamsulosin 0.4 MG Cap.ER PO ONE (14:46)
[2023-07-07] MEDS: Ondansetron 4 MG Tab.DIS PO ONE (14:46)
[2023-07-07 14:49] VITALS: BP 114/65; PULSE 59
== END 2023-07-07 14:50 | disposition home or self-care (01) ==
LOC: MW.ED 11:52
DX: N20.0 Calculus of kidney (principal); Z91.011 Allergy to milk products; Z91.018 Allergy to other foods; Z88.2 Allergy status to sulfonamides; Z88.1 Allergy status to other antibiotic agents; Z88.8 Allergy status to other drugs, medicaments and biological substances; Z79.899 Other long term (current) drug therapy
CPT/HCPCS: 36415; 74176; 80053; 81003; 83690; 85025; 96374; 96375; 99284; A9270; J2270; J2405; J3490

== ENCOUNTER 2023-09-21 07:49 | Day surgery (SDC) | payer OTHER ==
[~2023-09-21 07:49] MED LIST changes: +ceFAZolin 2 GM in Sodium Chloride 0.9% 50 ML IV ONE; +droPERidol 5 MG/2 ML SDV IVPUSH PRN
[2023-09-21] MEDS ORDERED: Scopalamine 1mg/3day Transdermal Patch TOP ONE (08:00)
[2023-09-21] MEDS: Lactated Ringers 1,000 ML IV SCH (08:11)
[2023-09-21 08:15] LABS: HEMATOCRIT 40.6 % (37.0-47.0); HEMOGLOBIN 14.2 g/dL (12.0-16.0); MEAN CORPUSCULAR HEMOGLOBIN 31.4 pg (28.0-32.0); MEAN CORPUSCULAR VOLUME 89.8 fL (83.0-99.0); MEAN PLATELET VOLUME 9.3 fL (9.4-12.3); PLATELET COUNT,PLT 198 K/uL (150-400); RED BLOOD CELL COUNT 4.52 M/uL (4.10-5.30); WHITE BLOOD CELL COUNT,WBC 4.95 K/uL (3.9-11.3)
[2023-09-21] MEDS: Scopalamine 1mg/3day Transdermal Patch TOP ONE (08:30)
[2023-09-21] MEDS: Scopalamine 1mg/3day Transdermal Patch ONE (08:38)
[2023-09-21] MEDS ORDERED: Lidocaine 1% with EPINEPHrine 1:100,000 50 ML MDV ONE (09:03)
[2023-09-21] MEDS ORDERED: Bupivacaine 0.25% 30 ML SDV ONE (09:03)
[2023-09-21] MEDS ORDERED: Neomycin/Polymyxin B Bladder Irrigation 1 ML Amp ONE (09:04)
[2023-09-21] MEDS ORDERED: Midazolam 1 MG/ML 2 ML SDV ONE (10:07)
[2023-09-21] MEDS ORDERED: fentaNYL 100 MCG/2 ML SDV ONE (10:07)
[2023-09-21] MEDS ORDERED: Propofol 200 MG/20 ML SDV ONE ×2 (10:07→10:31)
[2023-09-21] MEDS ORDERED: Lidocaine 2% 5 ML SDV ONE (10:07)
[2023-09-21] MEDS ORDERED: Ondansetron 4 MG/2 ML SDV ONE (10:09)
[2023-09-21] MEDS ORDERED: Ketorolac 30 MG/ML SDV ONE (10:09)
[2023-09-21] MEDS ORDERED: ceFAZolin 2 GM Vial ONE (10:34)
[2023-09-21 12:53] VITALS: BP 106/54; PULSE 48
== END 2023-09-21 12:45 | disposition home or self-care (01) ==
LOC: MW.SDS 07:49
PROVIDERS: ATTEND Obstetrics & Gynecology
DX: N39.3 Stress incontinence (female) (male) (principal); N36.41 Hypermobility of urethra; F41.9 Anxiety disorder, unspecified; Z79.899 Other long term (current) drug therapy; Z88.2 Allergy status to sulfonamides; Z91.011 Allergy to milk products
CPT/HCPCS: 36415; 57288; 85027; A9270; J0665; J0690; J1885; J2250; J2405; J2704; J3010; J7120; J3490

== ENCOUNTER 2023-10-24 09:39 | Emergency (ER) | payer OTHER ==
[2023-10-24 10:11] LABS: BASOPHILS ABSOLUTE AUTO 0.03 K/uL (0.00-0.20); BASOPHILS PERCENT AUTO 0.4 % (0.0-1.0); EOSINOPHILS ABSOLUTE AUTO 0.25 K/uL (0.00-0.45); EOSINOPHILS PERCENT AUTO 3.2 % (0.0-6.0); HEMOGLOBIN 15.1 g/dL (12.0-16.0); IMMATURE GRAN ABSOLUTE AUTO 0.01 K/uL (0.00-0.05); IMMATURE GRAN PERCENT AUTO 0.1 % (0.0-0.4); LYMPHOCYTES ABSOLUTE AUTO 0.84 K/uL (1.00-4.80); LYMPHOCYTES PERCENT AUTO 10.9 % (24.0-44.0); MEAN CORPUSCULAR HEMOGLOBIN 30.9 pg (28.0-32.0); MEAN CORPUSCULAR HGB CONC 34.3 g/dL (32.0-36.0); MEAN CORPUSCULAR VOLUME 90.2 fL (83.0-99.0); MEAN PLATELET VOLUME 9.9 fL (9.4-12.3); MONOCYTES ABSOLUTE AUTO 0.48 K/uL (0.00-0.80); MONOCYTES PERCENT AUTO 6.2 % (0.0-8.0); NEUTROPHILS ABSOLUTE AUTO 6.09 K/uL (1.80-7.70); NEUTROPHILS PERCENT AUTO 79.2 % (41.0-71.0); PLATELET COUNT,PLT 235 K/uL (150-400); RED BLOOD CELL COUNT 4.88 M/uL (4.10-5.30)
[2023-10-24 10:19] LABS: INR < 0.93 (0.86-1.11); PTT,PARTIAL THROMBOPLSTIN TIME 28.5 SEC (23.9-30.7)
[2023-10-24 10:24] LABS: A/G RATIO 0.8 (0.9-1.6); ALANINE AMINOTRANSFERASE,ALT 548 IU/L (14-63); ALBUMIN 3.2 g/dL (3.4-5.0); ALKALINE PHOSPHATASE 472 U/L (46-116); ASPARTATE AMNIOTRANSFERASE,AST 193 IU/L (15-37); BILIRUBIN TOTAL 2.1 mg/dL (0.2-1.0); BLOOD UREA NITROGEN,BUN 11 mg/dL (7.0-18.0); CALCIUM 9.1 mg/dL (8.5-10.1); CARBON DIOXIDE,CO2 24.5 mmol/L (21.0-32.0); CHLORIDE,CL 102 mmol/L (98-107); CREATININE 1.2 mg/dL (0.6-1.0); EST CRCL DRUG DOSING (CG) 61.61 mL/min; GLUCOSE RANDOM 120 mg/dL (74-106); PROTEIN TOTAL,TP 7.4 g/dL (6.4-8.2); SODIUM,NA 137 mmol/L (136-145)
[2023-10-24 10:29] LABS: ESTIMATED GFR 58 mL/min (>60)
[2023-10-24] MEDS: Sodium Chloride 0.9% 1,000 ML IV STA ×2 (11:13→11:53)
[2023-10-24] MEDS: diphenhydrAMINE 50 MG/ML SDV IVPUSH STA (11:14)
[2023-10-24] MEDS: EPINEPHrine 1 MG/1 ML Amp IM STA (11:19)
[2023-10-24] MEDS: methylPREDNISolone Sodium Succinate 125 MG/2 ML SDV IVPUSH STA (11:19)
[2023-10-24] MEDS: Famotidine 20 MG/2 ML SDV IVPUSH STA (11:19)
[2023-10-24] MEDS: EPINEPHrine 1 MG/1 ML Amp ONE (11:23)
[2023-10-24] MEDS: Iopamidol 755 MG/ML 500 ML Multipack Bottle IVPUSH STA (11:35)
[2023-10-24 12:45] LABS: APPEARANCE,URINE CLEAR; BILIRUBIN,URINE NEGATIVE (NEGATIVE); COLOR,URINE YELLOW; GLUCOSE,URINE NEGATIVE (NEGATIVE); KETONES,URINE NEGATIVE (NEGATIVE); LEUKOCYTE ESTERASE,URINE NEGATIVE (NEGATIVE); NITRITE,URINE NEGATIVE (NEGATIVE); OCCULT BLOOD,URINE NEGATIVE (NEGATIVE); PH,URINE 6.5 (5.0-8.0); PROTEIN,URINE NEGATIVE (NEGATIVE); UROBILINOGEN,URINE 0.2 EU/dL (<2.0)
[2023-10-24 15:22] VITALS: BP 109/61; PULSE 59
== END 2023-10-24 15:19 | disposition home or self-care (01) ==
LOC: MW.ED 09:39
DX: T88.6XXA Anaphylactic reaction due to adverse effect of correct drug or medicament properly administered, initial encounter (principal); E80.7 Disorder of bilirubin metabolism, unspecified; R74.01 Elevation of levels of liver transaminase levels; R07.89 Other chest pain; Z75.8 Other problems related to medical facilities and other health care; Z91.011 Allergy to milk products; Z91.018 Allergy to other foods; Z88.2 Allergy status to sulfonamides; Z91.041 Radiographic dye allergy status; Z88.8 Allergy status to other drugs, medicaments and biological substances; Z79.899 Other long term (current) drug therapy; Z90.710 Acquired absence of both cervix and uterus
CPT/HCPCS: 36415; 71046; 71275; 74177; 76705; 80053; 81003; 83690; 84484; 85025; 85027; 85610; 85730; 93005; 96361; 96372; 96374; 96375; 99285; J0171; J1200; J2919; J3490; J7030; Q9967; 93010; 99284

== ENCOUNTER 2024-04-08 20:13 | Emergency (ER) | payer OTHER ==
[2024-04-08] MEDS ORDERED: Sodium Chloride 0.9% 10 ML Syringe FLUSH PRN (20:38)
[2024-04-08] MEDS ORDERED: Sodium Chloride 0.9% 2.5 ML Syringe FLUSH PRN (20:38)
[2024-04-08] MEDS: Sodium Chloride 0.9% 1,000 ML IV STA (20:49)
[2024-04-08] MEDS: diphenhydrAMINE 50 MG/ML SDV IVPUSH ONE (20:49)
[2024-04-08] MEDS: Prochlorperazine 10 MG/2 ML SDV IVPUSH ONE (20:50)
[2024-04-08] MEDS: Ketorolac 30 MG/ML SDV IVPUSH ONE (20:50)
[2024-04-08 22:28] VITALS: BP 119/70; PULSE 55
== END 2024-04-08 22:27 | disposition home or self-care (01) ==
LOC: MW.ED 20:13
DX: G43.909 Migraine, unspecified, not intractable, without status migrainosus (principal); Z86.16 Personal history of COVID-19; Z90.710 Acquired absence of both cervix and uterus; Z88.1 Allergy status to other antibiotic agents; Z88.2 Allergy status to sulfonamides; Z88.8 Allergy status to other drugs, medicaments and biological substances; Z91.011 Allergy to milk products; Z91.018 Allergy to other foods; Z91.041 Radiographic dye allergy status; Z79.899 Other long term (current) drug therapy
CPT/HCPCS: 96361; 96374; 96375; 99283; J0780; J1100; J1200; J1885; J7030

== ENCOUNTER 2024-07-04 16:56 | Emergency (ER) | payer OTHER ==
[2024-07-04 17:16] LABS: BASOPHILS ABSOLUTE AUTO 0.02 K/uL (0.00-0.20); BASOPHILS PERCENT AUTO 0.4 % (0.0-1.0); EOSINOPHILS ABSOLUTE AUTO 0.05 K/uL (0.00-0.45); EOSINOPHILS PERCENT AUTO 0.9 % (0.0-6.0); HEMATOCRIT 44.6 % (37.0-47.0); HEMOGLOBIN 15.5 g/dL (12.0-16.0); IMMATURE GRAN ABSOLUTE AUTO 0.01 K/uL (0.00-0.05); IMMATURE GRAN PERCENT AUTO 0.2 % (0.0-0.4); LYMPHOCYTES ABSOLUTE AUTO 2.16 K/uL (1.00-4.80); MEAN CORPUSCULAR HEMOGLOBIN 31.3 pg (28.0-32.0); MEAN CORPUSCULAR HGB CONC 34.8 g/dL (32.0-36.0); MEAN CORPUSCULAR VOLUME 89.9 fL (83.0-99.0); MEAN PLATELET VOLUME 9.5 fL (9.4-12.3); MONOCYTES ABSOLUTE AUTO 0.31 K/uL (0.00-0.80); MONOCYTES PERCENT AUTO 5.6 % (0.0-8.0); NEUTROPHILS ABSOLUTE AUTO 2.99 K/uL (1.80-7.70); NEUTROPHILS PERCENT AUTO 53.9 % (41.0-71.0); PLATELET COUNT,PLT 225 K/uL (150-400); RED BLOOD CELL COUNT 4.96 M/uL (4.10-5.30); WHITE BLOOD CELL COUNT,WBC 5.54 K/uL (3.9-11.3)
[2024-07-04] MEDS: Sodium Chloride 0.9% 1,000 ML IV ONE (17:36)
[2024-07-04] MEDS: Aspirin 81 MG Tab.Chew PO ONE (17:36)
[2024-07-04 17:46] LABS: A/G RATIO 1.2 (0.9-1.6); ALANINE AMINOTRANSFERASE,ALT 40 IU/L (14-63); ALKALINE PHOSPHATASE 82 U/L (46-116); ASPARTATE AMNIOTRANSFERASE,AST 18 IU/L (15-37); BILIRUBIN TOTAL 0.5 mg/dL (0.2-1.0); BLOOD UREA NITROGEN,BUN 18 mg/dL (7.0-18.0); CARBON DIOXIDE,CO2 26.1 mmol/L (21.0-32.0); CHLORIDE,CL 102 mmol/L (98-107); CREATININE 1.2 mg/dL (0.6-1.0); GLUCOSE RANDOM 93 mg/dL (74-106); POTASSIUM,K 4.3 mmol/L (3.5-5.1); PRO B-TYPE NATRIUR PEPT,BNPPRO 54 pg/mL (0-125); PROTEIN TOTAL,TP 7.3 g/dL (6.4-8.2); SODIUM,NA 140 mmol/L (136-145)
[2024-07-04 17:47] LABS: ESTIMATED GFR 58 mL/min (>60)
[2024-07-04 17:48] LABS: APPEARANCE,URINE CLEAR; BILIRUBIN,URINE NEGATIVE (NEGATIVE); COLOR,URINE YELLOW; GLUCOSE,URINE NEGATIVE (NEGATIVE); KETONES,URINE NEGATIVE (NEGATIVE); LEUKOCYTE ESTERASE,URINE NEGATIVE (NEGATIVE); NITRITE,URINE NEGATIVE (NEGATIVE); OCCULT BLOOD,URINE NEGATIVE (NEGATIVE); PH,URINE 6.5 (5.0-8.0); PROTEIN,URINE NEGATIVE (NEGATIVE); UROBILINOGEN,URINE 0.2 EU/dL (<2.0)
[2024-07-04] MEDS: SIMETHICONE PO ONE (18:41)
[2024-07-04] MEDS: MAGNESIUM HYDROXIDE PO ONE (18:41)
[2024-07-04] MEDS: METOCLOPRAMIDE PO ONE (18:41)
[2024-07-04] MEDS: ALUMINUM HYDROXIDE PO ONE (18:41)
[2024-07-04] MEDS: Famotidine 20 MG/2 ML SDV IVPUSH ONE (18:42)
[2024-07-04] MEDS: Alum Hydrox/Mag Hydrox/Simeth 15 ML, Metoclopramide 5 MG, Lidocaine 2% 5 ML PO ONE (18:47)
[2024-07-04 20:21] VITALS: BP 113/69; PULSE 55
== END 2024-07-04 20:20 | disposition home or self-care (01) ==
LOC: MW.ED 16:56
DX: R07.9 Chest pain, unspecified (principal); Z91.011 Allergy to milk products; Z79.899 Other long term (current) drug therapy; Z88.2 Allergy status to sulfonamides; Z91.041 Radiographic dye allergy status; Z91.018 Allergy to other foods; Z88.8 Allergy status to other drugs, medicaments and biological substances; Z90.710 Acquired absence of both cervix and uterus; Z75.8 Other problems related to medical facilities and other health care
CPT/HCPCS: 36415; 71045; 80053; 81003; 83735; 83880; 84443; 84484; 85025; 85379; 85610; 93005; 96361; 96374; 99285; A9270; J7030; 93010; 99283